=== PATIENT | male | born 1995 | race Hispanic/Latino ===

== ENCOUNTER 2016-09-10 13:18 | Emergency (ER) | payer OTHER ==
[2016-09-10 13:47] VITALS: BP 123/73; PULSE 66; RESP 18; TEMP 98.5; O2SAT 97
[2016-09-10] MEDS ORDERED: Lidocaine 1% Inj (20ml) ONE (14:07)
[2016-09-10] MEDS ORDERED: Lidocaine 2% Inj (20ml) SC ONE (14:12)
--- NOTE | 2016-09-10 14:12 | ED PDOC ---
Upper Extremity Pain/Injury Time Seen by Provider: 09/10/16 14:00 Chief Complaint (Nursing): Upper Extremity Problem/Injury Chief Complaint (Provider): Injury right 2nd digit History Per: Patient History/Exam Limitations: no limitations Onset/Duration Of Symptoms: Hrs Current Symptoms Are (Timing): Still Present Quality: "Pain" Severity: Moderate Additional History Per: Patient, Family Additional Complaint(s): The pt is a 21yo, right hand dominant, male, presents to the ED for evaluation of laceration sustained to his right index finger. pt rpeorts he was moving a reclining chair and his finger got caught in the recliner, sustaining the laceration. Pt reports normal sensations to his finger but is unable to move it due to pain. He denies any numbness or tingling and offers no additional medical complaints. Pt's tetanus vaccination is up to date. Past Medical History Reviewed: Historical Data, Nursing Documentation, Vital Signs Vital Signs: Last Vital Signs Temp 98.5 F 09/10/16 13:43 Pulse 66 09/10/16 13:43 Resp 18 09/10/16 13:43 BP 123/73 09/10/16 13:43 Pulse Ox 97 09/10/16 13:43 - Medical History PMH: No Chronic Diseases - Surgical History Surgical History: No Surg Hx - Family History Family History: States: No Known Family Hx - Living Arrangements Living Arrangements: With Family - Social History Current smoker - smoking cessation education provided: No Alcohol: None Drugs: Denies - Home Medications Home Medications: Ambulatory Orders Medication Instructions Recorded Cephalexin [Keflex] 500 mg PO QID #28 capsule 09/10/16 - Allergies Allergies/Adverse Reactions: Allergies Allergy/AdvReac Type Severity Reaction Status Date / Time No Known Allergies Allergy Verified 09/10/16 13:42 Review of Systems ROS Statement: Except As Marked, All Systems Reviewed And Found Negative Musculoskeletal: Positive for: Hand Pain (injury to right index finger) Physical Exam - Reviewed Nursing Documentation Reviewed: Yes Vital Signs Reviewed: Yes - Physical Exam Appears: Positive for: Well, Non-toxic, Uncomfortable Head Exam: Positive for: ATRAUMATIC, NORMAL INSPECTION, NORMOCEPHALIC Skin: Positive for: Normal Color Neck: Positive for: Normal Cardiovascular/Chest: Positive for: Regular Rate, Rhythm Respiratory: Negative for: Respiratory Distress Extremity: Positive for: Other (2.5 cm linear laceration to right 1st digit on volar surface PIP; patient unable to flex at DIP) Neurologic/Psych: Positive for: Alert, Oriented, Mood/Affect (anxious due to pain) - ECG O2 Sat by Pulse Oximetry: 97 (RA) Pulse Ox Interpretation: Normal - Progress ED Course And Treament: KEFLEX 500 MG X 1 DOSE DIGITAL BLOCK TO DIGIT FOR PAIN CONTROL. D/W DR. BANDA. PATIENT TO ARRANGE FOR F/U SUNDAY WOUND CLOSED IN ED. FINGER SPLINT PLACED. Medical Decision Making Medical Decision Making: Time: 141 Impression: Right 2nd digit injury Plan: -- Lidocaine 2% -- See procedure note for wound care -- Keflex 500 mg PO --Reassess based on wound complexity, will call hand specialist risk control manager for consult. Time: 154 Dr. Gonzalez advised to put a finger splint and for the pt to follow up on Sunday. Time: 160 Pt to be given Rx abx and instructions for home care until hand specialist visit. Pt expresses understanding of plan and is agreeable. Stable for d/c home. Scribe Attestation: All records were documented by Chantal Yoder, acting as a Scribe for DILC[employer] Dinero. Provider Scribe Attestation: All medical record entries made by the Scribe were at my direction and personally dictated by me. I have reviewed the chart and agree that the record accurately reflects my personal performance of the history, physical exam, medical decision making, and the department course for this patient. I have also personally directed, reviewed, and agree with the discharge instructions and disposition. Procedures - Time-Out Type of Procedure: Finger laceration repair Site of Procedure: 2nd digit right hand Correct Patient: Yes Correct Procedure: Yes PA/Tech: Elisa Gould - Laceration/Wound Repair Right 2nd digit Wound Length (cm): 2.5 Wound's Depth, Shape: superficial, linear Betadine Prep?: Yes Anesthesia: 1% Lidocaine Suture Size/Type: 5:0, nylon Number of Sutures: 4 Wound Complexity: Simple Sterile Dressing Applied?: Yes Splint Applied?: Yes Type of Splint Applied: finger splint Progress: Pt tolerated procedure well. Disposition - Clinical Impression Clinical Impression: Tendon laceration - Patient ED Disposition Is Patient to be Admitted: No - Disposition Referrals: Bao Banda MD [Medical Doctor] - Disposition: Routine/Home Disposition Time: 16:42 Condition: FAIR Additional Instructions: CALL OFFICE ON SUNDAY FOR F/U WITH HAND SURGEON NEXT WEEK. Prescriptions: Cephalexin [Keflex] 500 mg PO QID #28 capsule Instructions: Finger Laceration (ED), Tendon Rupture (ED) Forms: [facility] ED School/Work Excuse
== END 2016-09-10 16:41 | disposition home or self-care (01) ==
LOC: H.ER 13:18
DX: S61.210A Laceration without foreign body of right index finger without damage to nail, initial encounter (principal); W23.0XXA Caught, crushed, jammed, or pinched between moving objects, initial encounter